=== PATIENT | female | born 1980 | race Caucasian/White ===

== ENCOUNTER → 2020-11-16 | Outpatient (CLI) | payer BC | END | disposition home or self-care (01) | LOC: LABWHC1 15:50 | PROVIDERS: ATTEND Otolaryngology | DX: Z76.89 Persons encountering health services in other specified circumstances (principal) | CPT/HCPCS: 36415 ==

== ENCOUNTER → 2021-01-03 | Outpatient (CLI) | payer BC ==
--- NOTE | 2021-01-03 10:14 | CT ---
EXAMINATION TYPE: CT sinus wo con DATE OF EXAM: 01/03/2021 COMPARISON: none HISTORY: chronic sinus congestion, recurrent epistaxis CT DLP: [address] of the paranasal sinuses was performed in the axial and coronal planes. Bone and soft tissue settings are submitted. The paranasal sinuses demonstrate normal aeration and development. The paranasal sinuses are free of mucosal thickening or air fluid level. The osteal meatal units are patent bilaterally. The nasal septum is midline. No bony destructive changes are seen within the field of view. IMPRESSION: Normal unenhanced CT of the paranasal sinuses.
== END | disposition home or self-care (01) ==
LOC: RADCTMAIN 09:17
PROVIDERS: ATTEND Otolaryngology
DX: J32.9 Chronic sinusitis, unspecified (principal)
CPT/HCPCS: 70486

== ENCOUNTER → 2022-06-09 | Outpatient (CLI) | payer BC ==
--- NOTE | 2022-06-10 16:12 | MM ---
Reason for Exam: Screening (asymptomatic). Patient History: Menarche at age 11. First Full-Term at age 15. Last menstrual period: 06/03/2022 Risk Values: Annie 5 year model risk: 0.5%. NCI Lifetime model risk: 7.2%. Tissue Density: The breast tissue is heterogeneously dense. This may lower the sensitivity of mammography. Findings: Analyzed By CAD. No suspicious groups of microcalcifications, spiculated or lobular masses, architectural distortion or other secondary signs of malignancy are mammographically apparent. Overall Assessment: Negative, BI-RAD 1 Management: Screening Mammogram of both breasts in 1 year. A negative mammogram report should not preclude additional follow up of suspicious palpable abnormalities. Patient should continue monthly self breast exam. A clinical breast exam by your physician is recommended on an annual basis and results should be correlated with mammographic findings. Electronically signed and approved by: Antonio oTny D.O. Radiologis
== END | disposition home or self-care (01) ==
LOC: RADMAMWWP 15:54
PROVIDERS: ATTEND Family Medicine
DX: Z12.31 Encounter for screening mammogram for malignant neoplasm of breast (principal); Z80.3 Family history of malignant neoplasm of breast
CPT/HCPCS: 77067

== ENCOUNTER → 2023-06-26 | Outpatient (CLI) | payer BC ==
--- NOTE | 2023-06-29 20:21 | MM ---
Reason for Exam: Screening (asymptomatic). Last screening mammogram was performed 12 month(s) ago. Patient History: Menarche at age 11. First Full-Term at age 15. Premenopausal. Maternal grandmother had breast cancer at or over age 50. Risk Values: Annie 5 year model risk: 0.5%. NCI Lifetime model risk: 7.1%. Prior Study Comparison: 06/09/2022 Bilateral MG screening mammo w CAD, [facility]. Tissue Density: There are scattered fibroglandular densities. Findings: Analyzed By CAD. Areas of asymmetric density are unchanged. There is no suspicious group of microcalcifications or new suspicious mass in either breast. Overall Assessment: Benign, BI-RAD 2 Management: Screening Mammogram of both breasts in 1 year. . Patient should continue monthly self-breast exams. A clinical breast exam by your physician is recommended on an annual basis. This exam should not preclude additional follow-up of suspicious palpable abnormalities. Note on Annie scores and lifetime risk: 1. A Annie score greater than 3% is considered moderate risk. If this is the case, consider specialist referral to assess eligibility for a risk reducing agent. 2. If overall lifetime risk for the development of breast cancer is 20% or higher, the patient may qualify for future screening with alternating mammogram and breast MRI. Electronically signed and approved by: Kristy Helm M.D. Radiologist
== END | disposition home or self-care (01) ==
LOC: RADMAMWWP 10:57
PROVIDERS: ATTEND Family Medicine
DX: Z12.31 Encounter for screening mammogram for malignant neoplasm of breast (principal); Z80.3 Family history of malignant neoplasm of breast
CPT/HCPCS: 77063; 77067

== ENCOUNTER → 2024-08-02 | Outpatient (CLI) | payer BC ==
--- NOTE | 2024-08-02 10:59 | CT ---
EXAMINATION TYPE: CT abdomen pelvis w con CT DLP: 1661 mGycm, Automated exposure control for dose reduction was used. DATE OF EXAM: 08/02/2024 10:37 AM COMPARISON: None CLINICAL INDICATION:Female, 43 years old with history of R10.31 RLQ PAIN; lump RLQ, pain RLQ TECHNIQUE: Standard CT of the abdomen and pelvis following the administration of 100 cc of Isovue 3 00 IV contrast material and oral contrast. Coronal and sagittal reformats were performed. FINDINGS: LOWER CHEST: Unremarkable ABDOMEN LIVER: Unremarkable GALLBLADDER AND BILE DUCTS: Unremarkable. PANCREAS: Unremarkable. SPLEEN: Subcentimeter hypodensity within the spleen which is too small to characterize. ADRENAL GLANDS: Unremarkable. KIDNEYS AND URETERS: No left hydronephrosis. Nonobstructive left lower pole 2 mm calculus. Mild right hydronephrosis without obstructing calculus. The right ureter appears compressed by the pelvic yordy s. PELVIS BLADDER: Incompletely distended but grossly unremarkable. There is mass effect on the posterior aspec t from the pelvic masses. REPRODUCTIVE: Right anterior pelvic heterogenous enhancing mass measuring 14.7 x 12.0 x 15.8 cm in TV , AP, CC dimensions (series 3, image 66). This abuts the uterine fundus and is in the region of the r ight ovary. Extends superiorly to the level of the umbilicus. Additional abnormal appearance of the u terus with hypodense lesion identified centrally measuring 8.0 x 7.5 x 9.5 cm in TV, AP, CC dimension s (series 3, 74). Left ovary appears unremarkable. Right ovary is not confidently identified. May be identified in the right upper adnexa (series 3, image 50). ABDOMEN & PELVIS STOMACH AND BOWEL: Small hiatal hernia, duodenum is unremarkable. No focal bowel wall thickening or s urrounding inflammatory changes. Enteric contrast is reaches the distal small bowel. The appendix is within normal limits. No evidence of bowel obstruction. PERITONEUM: No evidence of pneumoperitoneum or free fluid. VASCULATURE: No evidence of aortic aneurysm. Pelvic phleboliths. Dilated right gonadal vein. MUSCULOSKELETAL: No acute osseous abnormalities LYMPH NODES: Few enlarged periaortic lymph nodes with largest on the left measuring 1.7 cm short axis (series 3, image 49). SOFT TISSUE/ABDOMINAL WALL: Unremarkable IMPRESSION: 1. Abnormal appearance of the uterus with intrauterine 9.5 cm mass and additional right adnexal 15.8 cm mass which abuts the uterus. This larger mass appears to emanate from the uterine fundus however the right ovary is not well-visualized. May represent a pedunculated uterine mass. Etiologies include uterine leiomyomas versus leiomyosarcoma versus right ovarian neoplasms. Consider further evaluation with MRI pelvis. Recommend gynecological evaluation. 2. Few enlarged periaortic lymph nodes which may be related to #1. 3. Mild right hydronephrosis with the ureter coursing adjacent to the large right adnexal mass which may cause extrinsic compression and/or invasion. 4. Dilation of the right gonadal vein likely related to #1. [facility], , 08/02/2024 10:56 AM
== END | disposition home or self-care (01) ==
LOC: RADCTMAIN 08:52
PROVIDERS: ATTEND Family Medicine
DX: R10.31 Right lower quadrant pain
CPT/HCPCS: 74177

== ENCOUNTER → 2024-08-11 | Outpatient (CLI) | payer BC ==
--- NOTE | 2024-08-12 12:32 | MM ---
Reason for Exam: Screening (asymptomatic). Last mammogram was performed 1 year(s) and 2 month(s) ago. Patient History: Menarche at age 11. First Full-Term at age 15. Premenopausal. Maternal grandmother had breast cancer at or over age 50. Maternal aunt had breast cancer. Risk Values: Annie 5 year model risk: 0.6%. NCI Lifetime model risk: 7.1%. Prior Study Comparison: 06/09/2022 Bilateral MG screening mammo w CAD, [facility]. 06/26/2023 Bilateral MG 3D screening mammo w/cad, [facility]. Tissue Density: There are scattered areas of fibroglandular density. Findings: Analyzed By CAD. Right breast: There is no suspicious group of microcalcifications or new suspicious mass. Left breast: There is no suspicious group of microcalcifications or new suspicious mass. Overall Assessment: Negative, BI-RAD 1 Management: Screening Mammogram of both breasts in [address] [facility] will attempt to contact patient to return for supplemental views and ultrasound if indicated. Patient should continue monthly self-breast exams. A clinical breast exam by your physician is recommended on an annual basis. This exam should not preclude additional follow-up of suspicious palpable abnormalities. Note on Annie scores and lifetime risk: 1. A Annie score greater than 3% is considered moderate risk. If this is the case, consider specialist referral to assess eligibility for a risk reducing agent. 2. If overall lifetime risk for the development of breast cancer is 20% or higher, the patient may qualify for future screening with alternating mammogram and breast MRI. [facility], , 08/12/2024 12:29 PM. Electronically signed and approved by: Anshul Almanza DO
== END | disposition home or self-care (01) ==
LOC: RADMAMWWP 11:17
PROVIDERS: ATTEND Family Medicine
DX: Z80.3 Family history of malignant neoplasm of breast
CPT/HCPCS: 77063; 77067

== ENCOUNTER → 2024-09-05 | Outpatient (CLI) | payer BC ==
--- NOTE | 2024-09-05 17:25 | XR ---
EXAMINATION TYPE: XR chest 2V DATE OF EXAM: 09/05/2024 4:14 PM COMPARISON: None CLINICAL INDICATION: Female, 43 years old with history of R19.00; [facility] TECHNIQUE: XR chest 2V Frontal and lateral views of the chest. FINDINGS: Lungs/Pleura: There is no evidence of pleural effusion, focal consolidation, or pneumothorax. Pulmonary vascularity: Unremarkable. Heart/mediastinum: Cardiomediastinal silhouette is unremarkable. Musculoskeletal: No acute osseous pathology. Other findings: None IMPRESSION: No acute cardiopulmonary disease/process. [facility], , 09/05/2024 5:23 PM
[2024-09-05 17:32] LABS: Appearance,Urine Clear (Clear); Bilirubin,Urine Negative (Negative); Blood,Urine Negative (Negative); Color,Urine Yellow; Glucose,Urine (UA) Negative (Negative); Ketones,Urine Negative (Negative); Leukocyte Esterase,Urine Negative (Negative); Nitrite,Urine Negative (Negative); PH, Urine 5.5 (5.0-8.0); Protein,Urine Negative (Negative); Specific Gravity,Urine 1.023 (1.001-1.035); Urobilinogen,Urine <2.0 mg/dL (<2.0)
[2024-09-05 17:36] LABS: ALT 38 U/L (4-34); AST 31 U/L (14-36); African American GFR (CKD) >90 (>60 ml/min/1.73 sqM); Albumin/Globulin Ratio 1.4; Alkaline Phosphatase 52 U/L (38-126); Anion Gap 3 mmol/L; Blood Urea Nitrogen 16 mg/dL (7-17); Calcium 9.6 mg/dL (8.4-10.2); Carbon Dioxide 27 mmol/L (22-30); Chloride 108 mmol/L (98-107); Globulin 2.9 g/dL; Glucose 85 mg/dL (74-99); Non-African American GFR(CKD) 83 (>60 ml/min/1.73 sqM); Potassium 4.2 mmol/L (3.5-5.1); Sodium 138 mmol/L (137-145); Total Bilirubin 0.4 mg/dL (0.2-1.3); Total Protein 6.9 g/dL (6.3-8.2)
[2024-09-05 17:39] LABS: HCG,Qualitative Serum Not Detected
[2024-09-06 02:52] LABS: HCT 41.2 % (37.2-46.3); HGB 13.3 g/dL (12.0-15.0); MCH 26.9 pg (27.0-32.0); MCHC 32.3 g/dL (32.0-37.0); MCV 83.2 FL (80.0-97.0); Mean Platelet Volume 9.8 FL (9.5-12.2); NRBC Per 100 WBC 0 X 10*3/uL (0.00-0.01); Platelet Count 306 X 10*3/uL (140-440); RBC 4.95 X 10*6/uL (4.10-5.20); RDW 15.1 % (11.5-14.5); WBC 6.93 X 10*3/uL (4.50-10.00)
[2024-09-06 03:19] LABS: Cancer Antigen 125 32.3 U/mL (0.0-30.1)
== END | disposition home or self-care (01) ==
LOC: RADXRMAIN 15:57
PROVIDERS: ATTEND Obstetrics & Gynecology Gynecologic Oncology
DX: R19.09 Other intra-abdominal and pelvic swelling, mass and lump (principal)
CPT/HCPCS: 71046; 80053; 81003; 82378; 83036; 84703; 85027; 86304; 87086

== ENCOUNTER → 2024-11-17 | Outpatient (CLI) | payer BC ==
--- NOTE | 2024-11-17 16:28 | CT ---
EXAMINATION TYPE: CT abdomen pelvis w con DATE OF EXAM: 11/17/2024 COMPARISON: 08/02/2024 CLINICAL INDICATION: Female, 44 years old with history of N73.9 FEMALE PELVIC INFLAMMATORY DISEASE, U NSPECIF; PH, Pt states she had a kidney stent put in that now needs to be approved to be removed. TECHNIQUE: Performed with Oral Contrast and with IV Contrast, patient injected with 100cc mL of Isovue 300. CT DLP: 760.[address] CTDI: mGy Automated exposure control for dose reduction was used. Findings: The lung bases are clear. The gallbladder is normal without distention, wall thickening, pericholecystic fluid or gallstones. T here is no biliary ductal dilatation. There is no focal mass or organomegaly involving the liver, pancreas, spleen or adrenal glands. There is a right ureteral stent with the proximal aspect of the stent and the extrarenal pelvis and t he distal end of the stent within the urinary bladder. There is persistent chronic moderate hydroneph rosis of the right kidney. Left kidney is unremarkable without calculus, solid renal mass or hydronep hrosis. The caliber the abdominal aorta is normal is no retroperitoneal adenopathy or hemorrhage. The bowel loops are normal in caliber and there is no evidence of dilatation or obstruction. No infla mmatory changes are identified in the bowel wall or mesentery. There is no free intraperitoneal air or fluid. There is surgical absence of uterus and the previously described large pelvic mass which was likely a n enlarged fibroid uterus or uterine fibroid.. There is no pelvic adenopathy, free fluid or abscess The osseous structures and soft tissues are intact. IMPRESSION: 1. Right ureteral stent in satisfactory position. 2. Moderate right hydronephrosis, likely chronic. 3. Status post hysterectomy and removal of large pelvic mass as described above. [facility], , 11/17/2024 4:26 PM
== END | disposition home or self-care (01) ==
LOC: RADCTMAIN 13:45
PROVIDERS: ATTEND Obstetrics & Gynecology Gynecologic Oncology
DX: N73.9 Female pelvic inflammatory disease, unspecified (principal); N13.30 Unspecified hydronephrosis; Z90.710 Acquired absence of both cervix and uterus; Z96.0 Presence of urogenital implants
CPT/HCPCS: 74177; Q9967